=== PATIENT | female | born 1970 | race Caucasian/White ===

== ENCOUNTER 2016-07-16 07:07 | Emergency (ER) | payer OTHER ==
[~2016-07-16] VITALS: Ht 162.6 cm; Wt 111.6 kg
[2016-07-16 07:22] VITALS: BP 114/54
--- NOTE | 2016-07-16 07:42 | NUR ---
Patient ambulated to bed 4. RN evaluating patient at bedside.
--- NOTE | 2016-07-16 07:48 | NUR ---
46/F TO ED WITH C/O ABD PAIN AND NAUSEA X3 DAYS. DENIES VOMITING AND DIARRHEA. PAIN 8/10. BOWEL SOUNDS PRESENT X4Q. LUNGS CLEAR BILAT. HR EVEN AND REGULAR. AAOX4. VSS. NO SIGNS OF DISTRESS.
[2016-07-16] MEDS: NACL 0.9% 1,000 ML IV ONE ×2 (08:07→10:27)
[2016-07-16] MEDS: ONDANSETRON 4 MG/2 ML VIAL IVP ONE (08:08)
[2016-07-16] MEDS: HYDROmorphone 1 MG/ML AMP IVP ONE (08:08)
[2016-07-16] MEDS: KETOROLAC 30 MG/ML VIAL IVP ONE (08:08)
[2016-07-16 08:12] LABS: HEMATOCRIT 41.4 % (36-48); HEMOGLOBIN 13.7 g/dL (12.0-16.0); MEAN CORPUSCULAR HEMOGLOBIN 29 pg (27-31); MEAN CORPUSCULAR HGB CONC 33 g/dL (33-37); MEAN CORPUSCULAR VOLUME 88 fL (80-94); PLATELET COUNT (AUTO) 229 K/uL (140-450); RED BLOOD CELL COUNT(AUTO) 4.73 MIL/uL (4.20-5.40); RED CELL DISTRIBUTION WIDTH 12.1 % (11.6-13.7); WHITE BLOOD COUNT (AUTO) 9.1 K/uL (4.8-10.8)
[2016-07-16 08:19] LABS: BILIRUBIN,URINE NEGATIVE (NEGATIVE); BLOOD, URINE 1+ (NEGATIVE); LEUKOCYTE ESTERASE ,URINE NEGATIVE (NEGATIVE); NITRITE, URINE NEGATIVE (NEGATIVE); PROTEIN,URINE NEGATIVE (NEGATIVE); UGLUCOSE NEGATIVE (NEGATIVE); UROBILINOGEN,URINE 0.2 EU/dL (0.2 - 1)
[2016-07-16 08:21] LABS: ANION GAP 11.9 (8-16); CARBON DIOXIDE 27.7 mmol/L (21-32); CREATININE 0.8 mg/dL (0.6-1.3); POTASSIUM 3.6 mmol/L (3.5-5.1)
[2016-07-16 08:27] LABS: ALBUMIN 3.2 g/dL (3.4-5.0); TOTAL BILIRUBIN 0.3 mg/dL (0.0-1.0); TOTAL PROTEIN, SERUM 7.7 g/dL (6.4-8.2)
[2016-07-16 08:37] LABS: BAND % (MANUAL) 11 % (0-8); LYMPHOCYTES % (MANUAL) 15 % (20-46); MONOCYTES % (MANUAL) 5 % (5-12); NEUTROPHILS % (MANUAL) 69 (43-65); PLATELET ESTIMATE ADEQUATE
[2016-07-16 08:47] LABS: APPEARANCE,URINE HAZY (CLEAR); COLOR,URINE YELLOW (YELLOW)
[2016-07-16 08:50] LABS: RBC,URINE 0-5 (RARE) /HPF (0-5); WBC,URINE 0-5 (RARE) /HPF (0-5)
[2016-07-16 08:51] LABS: BACTERIA,URINE 1+ /HPF (None Seen); SQUAMOUS EPITHELIAL CELL,UR 4-10 (MOD) /LPF (0-3 (FEW)); URINE AMORPHOUS PHOSPHATES 1+ /HPF (None Seen); YEAST,URINE Rare /HPF (None Seen)
[2016-07-16] MEDS ORDERED: cefTRIAXone 1,000 MG VIAL ONE (10:16)
--- NOTE | 2016-07-16 10:51 | NUR ---
Patient appears to be resting comfortably in bed. Vital Signs within normal limits. Respirations even and unlabored.
[2016-07-16 11:04] VITALS: BP 118/64
--- NOTE | 2016-07-16 11:04 | NUR ---
Patient discharged with v/s stable. Written and verbal after care instructions given and explained. Patient alert, oriented and verbalized understanding of instructions. Ambulatory with steady gait. All questions addressed prior to discharge. ID band removed. Patient advised to follow up with PMD. Rx of ZOFRAN, MOTRIN given. Patient educated on indication of medication including possible reaction and side effects. Opportunity to ask questions provided and answered.
== END 2016-07-16 11:04 | disposition home or self-care (01) ==
LOC: MED 07:07
DX: T78.1XXA Other adverse food reactions, not elsewhere classified, initial encounter (principal); R51 Headache; I10 Essential (primary) hypertension; X58.XXXA Exposure to other specified factors, initial encounter
CPT/HCPCS: 36415; 74022; 80053; 81001; 82150; 83690; 84703; 85025; 87086; 96361; 96365; 96375; 99285; J0696; J1170; J1885; J2405; J7030; J7060